=== PATIENT | female | born 1985 | race Caucasian/White ===

== ENCOUNTER 2016-11-18 13:25 | Emergency (ER) | payer OTHER ==
[~2016-11-18 13:25] MED LIST: LEVAQUIN750 MG PO; TYLENOL 325MG325 MG PO
[2016-11-18 20:09] LABS: HEMOGLOBIN 13.5 gm/dl (12.3-15.3); RED BLOOD COUNT 4.54 M/UL (4.00-5.10); WHITE BLOOD COUNT 4.7 K/UL (4.5-11.0)
[2016-11-18 20:36] LABS: BUN/CREATININE RATIO 11 (0-10)
== END 2016-11-18 22:28 | disposition home or self-care (01) ==
LOC: ER1 13:25
PROVIDERS: Emergency Medicine
DX: R05 Cough (principal); L03.116 Cellulitis of left lower limb; L03.115 Cellulitis of right lower limb; R07.89 Other chest pain; R00.0 Tachycardia, unspecified; Z88.2 Allergy status to sulfonamides
CPT/HCPCS: 36415; 71020; 80053; 83605; 84484; 84703; 85025; 85610; 85730; 93005; 96360; 99285; J7050; Q9963